=== PATIENT | male | born 1985 | race Caucasian/White ===

== ENCOUNTER 2020-04-06 08:26 | Outpatient (CLI) | payer BC, SELFPAY ==
--- NOTE | 2020-04-06 08:00 | US_ITS ---
WS: [id number] ULTRASOUND ABDOMEN LIMITED CLINICAL INFORMATION: RUQ pain COMPARISON: None. FINDINGS: Liver Size: Enlarged Craniocaudal length: 17.7 cm. Echogenicity: Fatty Surface nodularity: None. Mass (size and location): None. Bile ducts Intrahepatic ducts: Normal. Common bile duct diameter: 0.2 cm. Gallbladder Normal. Gallstones: None. Gallbladder sludge: None. Gallbladder wall thickening: None. Pericholecystic fluid: None. Sonographic Morillo sign: Absent. Pancreas Normal as visualized. Right kidney: Normal. Hydronephrosis: None. Size: 9.4 cm x 6.1 cm x 5.1 cm. Abdominal aorta and IVC Visualized portions are normal. Ascites: None. US/US abdomen limited [id number] IMPRESSION: 1. Mild hepatomegaly diffuse fatty infiltration. 2. No hydronephrosis in right kidney. 3. Normal gallbladder and common bile duct.
== END 2020-04-06 08:27 | disposition home or self-care (01) ==
LOC: RAD 08:35
PROVIDERS: PCP Family Medicine; Visit Provider Family Medicine
DX: R10.11 Right upper quadrant pain (principal); R16.0 Hepatomegaly, not elsewhere classified; K76.0 Fatty (change of) liver, not elsewhere classified
CPT/HCPCS: 76705

== ENCOUNTER → 2020-06-18 13:57 | Outpatient (BNVA) | payer BC, SELFPAY | PROVIDERS: PCP Family Medicine; Visit Provider Family Medicine | DX: R10.11 Right upper quadrant pain (principal) | CPT/HCPCS: 87205; 87493; 87506 ==

== ENCOUNTER → 2020-10-16 11:26 | Outpatient (BNVA) | payer BC, SELFPAY | PROVIDERS: PCP Family Medicine; Visit Provider Family Medicine | DX: Z13.6 Encounter for screening for cardiovascular disorders (principal); F41.1 Generalized anxiety disorder; K52.9 Noninfective gastroenteritis and colitis, unspecified; F17.290 Nicotine dependence, other tobacco product, uncomplicated; L30.9 Dermatitis, unspecified | CPT/HCPCS: 80053; 80061; 85025 ==

== ENCOUNTER → 2021-10-15 08:51 | Outpatient (BNVA) | payer BC, SELFPAY | PROVIDERS: PCP Family Medicine; Visit Provider Family Medicine | DX: I10 Essential (primary) hypertension (principal) | CPT/HCPCS: 80053; 80061; 82043; 85025 ==

== ENCOUNTER → 2022-10-17 11:24 | Outpatient (BNVA) | payer BC, SELFPAY | PROVIDERS: PCP Family Medicine; Visit Provider Family Medicine | DX: I10 Essential (primary) hypertension (principal) | CPT/HCPCS: 80053; 80061; 85025 ==

== ENCOUNTER → 2023-09-16 14:45 | Outpatient (BNVA) | payer BC, SELFPAY | PROVIDERS: PCP Family Medicine; Visit Provider Registered Nurse Neonatal Intensive Care | DX: J02.9 Acute pharyngitis, unspecified (principal); B96.89 Other specified bacterial agents as the cause of diseases classified elsewhere; H61.23 Impacted cerumen, bilateral | CPT/HCPCS: 87880 ==

== ENCOUNTER 2024-02-25 20:01 | Emergency (ER) | payer SELFPAY ==
[2024-02-25 20:18] VITALS: BP 149/98; PULSE 82; RESP 16; TEMP 36.6; O2SAT 97
--- NOTE | 2024-02-25 21:58 | USCV_ITS ---
Robin Ho Age: 38 Gender: M : 1985 Exam Date: 02/25/2024 22:59 Ordering Phys: Mark Hitchcock Technologist: Dylan Peñaloza [place] [facility] [place] Indication: foot numbness PROCEDURES: Venous duplex imaging was performed in only the left lower extremity. The following venous structures were evaluated: common femoral vein, profunda vein, proximal portion of the greater saphenous vein, superficial femoral vein, and the popliteal vein. In addition, the posterior tibial and peroneal trunk were evaluated. Serial compression, augmentation maneuvers, and spectral Doppler flow evaluation were performed. FINDINGS: Normal 2-D Doppler and augmentation and compressibility throughout the lower extremity venous structures. Additional imaging through the proximal calf veins also reveals no thrombus. Limited evaluation of the greater saphenous vein is patent with no thrombus. CONCLUSIONS No DVT left lower extremity. Dr. Maya Goodwin DO (Electronically Signed) Final Date: 26 February 2024 07:40 S
[2024-02-25] MEDS: orphenadrine 30 mg/mL Inj 2 mL 60 MG IM (22:12)
[2024-02-25] MEDS: dexamethasone 10 mg/mL INJ IM (22:12)
--- NOTE | 2024-02-25 22:12 | ED_ITS ---
HPI - Back Pain/Injury General: Chief Complaint: Back Pain/Injury Stated Complaint: Left leg pain Time Seen by Provider: 02/25/24 20:36 Source: patient Mode of arrival: ambulatory Limitations: no limitations History of Present Illness: Patient is a 38-year-old male who presents to the emergency department complaining of left leg pain and numbness for the past few weeks, worsening today. He notes sudden onset of atraumatic pain, stating that he is having pain and numbness shoot from his left hip down to the dorsal aspect of his foot. He is notes that he is having issues walking because of this. Notes a history of lumbar decompression surgery many years ago, has never had pain like this in the past. 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 He is also endorsing some calf tenderness at this time. No other symptoms reported at this time. MD elicited complaint: other (Left lower extremity pain) Pertinent past history: back surgery Onset (ago): week(s) Severity: moderate Similar Symptoms Previously: No Associated symptoms: Deny abdominal pain, chills, fever(s), nausea or vomiting Review of Systems General: Reports: 10 or more systems reviewed and unremarkable except in HPI and below Const: Denies: fever(s) or chills Card: Denies: chest pain Resp: Denies: dyspnea or productive cough GI: Denies: abdominal pain, nausea, vomiting or diarrhea : Denies: flank pain Musc: Reports: extremity pain; Denies: neck pain, back pain, extremity swelling, joint pain, joint swelling, joint redness, joint warmth, limited range of motion or muscle weakness Skin/Breast: Denies: rash Neuro: Reports: numbness in extremities; Denies: headache(s) or weakness in extremities PFSH ED PFSH: Medical History ANDRZEJ (generalized anxiety disorder) Surgical History History of back surgery Family History Other Diabetes Hypertension Social History Smoking and tobacco/nicotine status: current every day tobacco/nicotine user (vape) e-cigarettes E-Cigarette Details: vaporizer device and with nicotine Alcohol intake: current Alcohol intake frequency: holidays/special occasions only Alcohol type: beer Substance/Drug Use: former Physical Exam Const: COMMON NORMALS: no acute distress, patient oriented x3, no limitations, healthy appearing, alert and well nourished HENMT: COMMON NORMALS: normocephalic and atraumatic HEAD & SCALP: normocephalic and atraumatic Neck/C-Spine: COMMON NORMALS: full ROM, supple and no meningeal signs Resp: COMMON NORMALS: normal respiratory effort, No use of accessory muscles and clear to auscultation bilaterally AUSCULTATION: clear to auscultation bilaterally Cardio: COMMON NORMALS: regular rate and regular rhythm RATE: regular rate RHYTHM: regular rhythm Extremity: NARRATIVE EXTREMITY EXAM: There is no obvious unilateral edema to the left leg, however there is moderate tenderness to palpation of the left calf. He also has tenderness to palpation of the dorsal aspect of the left foot. He has palpable pulses that are 2+ to the dorsalis pedis and posterior tibial. No obvious skin color change. Antalgic gait, essentially no range of motion at the hip knee or ankle. Neuro: COMMON NORMALS: patient oriented x3, moves all extremities, no focal motor deficits and no sensory deficits noted SENSORIUM/ORIENTATION: Yes alert MENINGEAL SIGNS: Yes no meningeal signs Skin: COMMON NORMALS: no rashes or lesions noted GENERAL SKIN EXAM: no rashes or lesions noted Course Vital Signs: Vital signs: Vital Signs Temperature 97.9 F 02/25/24 20:18 Pulse Rate 89 02/25/24 22:25 Respiratory Rate 15 02/25/24 22:25 Blood Pressure 127/91 02/25/24 22:25 Pulse Oximetry 98 02/25/24 22:25 Oxygen Delivery Me thod Room Air 02/25/24 22:25 MDM - Back Pain/Injury Medical Decision Making Patient presented for acute onset of atraumatic left lower extremity pain he did report that he drives a truck for living, there was no trauma, and he did have some distal neurovascular symptoms to report. Because of this I obtained an ultrasound with a blood clot, of which was negative. He did not specifically report any back pain, I do not feel that his pain is originating from this at the time. He did note some improvement of his pain after receiving shot of Toradol, muscle laxer, and steroid. Because of this I will send steroid muscle laxer to pharmacy and he is to follow-up with primary care for further evaluation. XR interpretation done by ED provider, pending radiology final review Discharge Plan Discharge Patient Disposition: Home Clinical Impression: Acute pain of left lower extremity Condition: Stable Prescriptions: New cyclobenzaprine 10 mg tablet 10 mg PO TID Qty: 15 0RF prednisone 20 mg tablet 60 mg PO ONCE 5 Days Qty: 15 0RF No Action cyclobenzaprine 5 mg tablet 5 mg PO TID PRN (Reason: muscle spasm) Qty: 15 0RF betamethasone dipropionate 0.05 % cream 1 applic topical BID Qty: 45 1RF triamcinolone acetonide 0.1 % ointment 1 applic topical BID Qty: 80 1RF Rx Instructions: Apply to hands no more than 2 wks/mo alternating with Betamethasone buspirone 10 mg tablet 10 mg PO TID PRN (Reason: anxiety) Qty: 90 1RF citalopram 40 mg tablet See Rx Instructions .ROUTE .COMPLEX Qty: 90 0RF Dose Instruction: Take 1 tablet by mouth once daily Rx Instructions: Take 1 tablet by mouth once daily amlodipine 5 mg tablet See Rx Instructions .ROUTE .COMPLEX Qty: 90 1RF Dose Instruction: Take 1 tablet by mouth once daily Rx Instructions: Take 1 tablet by mouth once daily bupropion HCl 300 mg tablet extended release 24 hr 300 mg PO QAM Qty: 30 0RF Discharge Orders: Discharge ED (Routine); Ordered 02/25/24 Ordered By: Mark Hitchcock Referrals: Pili Delaney DO [Primary Care Provider] - Discharge Diet: Usual diet Discharge Activity: Increase activity as tolerated Patient Instructions: Leg Pain (ED), Pain Management Activity Restrictions/Additional Instructions: Take steroids and muscle relaxer. Follow-up with primary care. Return with any new or worsening. Coding Level of Care Code ED Business Solutions Director for Gloria Monsivais
[2024-02-25] MEDS: ketorolac 60 mg/2 mL INJ IM (22:15)
[2024-02-25 22:25] VITALS: BP 127/91; PULSE 89; RESP 15; O2SAT 98
[2024-02-25 23:37] VITALS: BP 157/101; PULSE 90; RESP 22; O2SAT 96
== END 2024-02-25 23:39 | disposition home or self-care (01) ==
PROVIDERS: Emergency Provider Physician Assistant; PCP Family Medicine
DX: M79.605 Pain in left leg (principal); F17.290 Nicotine dependence, other tobacco product, uncomplicated
CPT/HCPCS: 93971; 96372; 99284; J1100; J1885; J2360

== ENCOUNTER 2024-06-28 21:07 | Emergency (ER) | payer SELFPAY ==
[2024-06-28 21:08] VITALS: BP 177/104; PULSE 86; RESP 18; TEMP 36.9; O2SAT 99; BMI 26.4
--- NOTE | 2024-06-28 21:23 | XRR_ITS ---
PROCEDURE INFORMATION: Exam: XR Chest Exam date and time: 06/28/2024 9:47 PM Age: 38 years old Clinical indication: Right-sided; Patient HX: RT lateral lower rib pain-worse with inspiration post fall x 1 week ago TECHNIQUE: Imaging protocol: Radiologic exam of the chest. Views: 1 view. COMPARISON: No relevant prior studies available. FINDINGS: Lungs: No focal consolidation. Pleural spaces: No sizable pleural effusion. No pneumothorax. Heart/Mediastinum: Unremarkable cardiomediastinal silhouette. Bones/joints: The osseous structures are unremarkable. There is no evidence of acute fracture. XR/XR chest 1V portable [id number] IMPRESSION: No acute findings.
--- NOTE | 2024-06-28 21:33 | W.ED.PSYCHS ---
Documented by User: ANGIE Bonilla 06/28/24 22:38 HPI - Psych General: Chief Complaint: Psychiatric Symptoms Stated Complaint: DEPRESSION Time Seen by Provider: 06/28/24 21:10 Source: patient Mode of arrival: ambulatory Limitations: no limitations History of Present Illness: Patient is a 38-year-old male presenting to the emergency department from [facility] due to depression. States he has a history of chronic depression has been taking citalopram for years but his primary care recently left. He thinks that his citalopram has not been working for him, though also he was recently incarcerated during the same timeframe. Also notes a in the family. He is reporting right rib pain incidentally, as he was arrested last Monday and unable to tell me what happened. He is denying any suicidal ideation, homicidal ideation, hallucinations of any kind, or other symptoms. He arrives requesting that he be given something else for his anxiety. Upon reviewing his medications he does have a history of taking bupropion and BuSpar. MD complaint: feels depressed Onset (ago): year(s) History of same: Yes Exacerbating factors: other (Recently incarcerated) Associated psychiatric symptoms: none Associated symptoms: Reports depression; Deny auditory hallucinations, visual hallucinations, homicidal ideation or suicidal ideation Related Data Previous Rx's Medication Instructions Recorded betamethasone dipropionate 0.05 % 1 applic topical BID #45 grams 10/11/22 topical cream triamcinolone acetonide 0.1 % 1 applic topical BID #80 grams 10/11/22 topical ointment buspirone 10 mg tablet 10 mg PO TID PRN anxiety #90 tabs 10/27/23 amlodipine 5 mg tablet See Rx Instructions .Route 12/22/23 .COMPLEX #90 tabs citalopram 40 mg tablet See Rx Instructions .Route 12/22/23 .COMPLEX #90 tabs bupropion HCl 300 mg 24 hr tablet, 300 mg PO QAM #30 tabs 02/01/24 extended release cyclobenzaprine 5 mg tablet 5 mg PO TID PRN muscle spasm #15 02/05/24 tabs cyclobenzaprine 10 mg tablet 10 mg PO TID #15 tabs 02/25/24 Allergies Allergy/AdvReac Type Severity Reaction Status Date / Time No Known Allergies Allergy Verified 02/05/24 18:30 Review of Systems General: Reports: 10 or more systems reviewed and unremarkable except in HPI and below Const: Denies: fever(s), chills or fatigue Eyes: Denies: change in vision ENMT: Denies: throat pain, ear or mastoid pain or nasal discharge Card: Denies: chest pain, palpitations, swelling of feet/ankles or lightheadedness Resp: Denies: dyspnea, productive cough or wheezing GI: Denies: abdominal pain, nausea, vomiting, diarrhea or constipation : Denies: flank pain, difficulty urinating, dysuria or urinary frequency Musc: Denies: neck pain, back pain or joint pain Skin/Breast: Denies: rash Neuro: Denies: headache(s), numbness in extremities or weakness in extremities Psych: Reports: anxiety and depression; Denies: visual hallucinations, auditory hallucinations, tactile hallucinations, suicidal ideation or homicidal ideation PFS ED PFSH: Medical History ANDRZEJ (generalized anxiety disorder) Surgical History History of back surgery Family History Other Diabetes Hypertension Social History Smoking and tobacco/nicotine status: current every day tobacco/nicotine user (vape) e-cigarettes E-Cigarette Details: vaporizer device and with nicotine Alcohol intake: current Alcohol intake frequency: holidays/special occasions only Alcohol type: beer Substance/Drug Use: former Physical Exam Const: COMMON NORMALS: no acute distress and no limitations GENERAL APPEARANCE: cooperative and well developed ORIENTATION/CONSCIOUSNESS: Yes awake OTHER: Tearful on examination HENMT: COMMON NORMALS: normocephalic, atraumatic and hearing grossly normal bilaterally HEAD & SCALP: normocephalic and atraumatic Eye: COMMON NORMALS: Equal, round and reactive pupils present, EOMs intact bilaterally and conjunctivae normal CONJUNCTIVA: Yes conjunctivae normal PUPIL: Yes Equal, round and reactive pupils present Neck/C-Spine: COMMON NORMALS: full ROM, supple and no JVD Chest: OTHER: Reproducible tenderness to right anterolateral chest Resp: COMMON NORMALS: normal respiratory effort, No retractions, No use of accessory muscles and clear to auscultation bilaterally AUSCULTATION: clear to auscultation bilaterally Cardio: COMMON NORMALS: no JVD, regular rate, regular rhythm, No clicks present (Cardio), No murmurs present (Cardio) and No rub (Cardio) RATE: regular rate RHYTHM: regular rhythm GI: COMMON NORMALS: Normal to inspection, nondistended, normoactive bowel sounds present, Soft to palpation and non-tender AUSCULTATION: Yes normoactive bowel sounds PALPATION: Yes Soft to palpation RECTAL EXAM: Yes deferred Extremity: COMMON NORMALS: normal to inspection, full ROM and capillary refill normal Psych: COMMON NORMALS: mental status grossly normal, Normal thought process present and speech normal APPEARANCE: Yes disheveled ACTIVITY/MOTOR BEHAVIOR: Yes Avoids eye contact (attititude/behavior) SPEECH: Yes normal speech MOOD & AFFECT: Yes tearful THOUGHT PROCESS: Normal thought process present THOUGHT CONTENT: No Suicidality present, No Homicidality present and No Hallucination(s) present Skin: COMMON NORMALS: no rashes or lesions noted GENERAL SKIN EXAM: no rashes or lesions noted Course Vital Signs: Vital signs: Vital Signs Temperature 98.4 F 06/28/24 21:08 Pulse Rate 66 06/28/24 22:44 Respiratory Rate 18 06/28/24 21:08 Blood Pressure 141/96 06/28/24 22:44 Pulse Oximetry 96 06/28/24 22:44 Oxygen Delivery Me thod Room Air 06/28/24 22:30 [facility] - Psych Medical Decision Making Patient presented from [place] [facility] for anxiety and depression, he has a history of multiple years of this. He did not report any suicidal or homicidal ideations. States that he was recently put in [place] [facility] and family mother , this is likely explaining an acute exacerbation of his anxiety/depression. Also states for a while now his citalopram has slowly started to not be as effective. He notes improvement after receiving 1 Ativan here as he was tearful on exam and acutely anxious. He was reporting some right chest wall pain from an incident Monday prior to him getting arrested, this was negative for any fracture. He is informed to follow-up with new primary care and establish with [facility] again so that he can discuss new pain medications. Did instruct him that if he has any SI/HI to come back. Lab Data Radiology Impressions Chest X-Ray 06/28/24 21:23 IMPRESSION: No acute findings. No radiology studies performed this visit Discharge Plan Discharge Patient Disposition: Home Clinical Impression: ANDRZEJ (generalized anxiety disorder) Condition: Stable Prescriptions: No Action cyclobenzaprine 5 mg tablet 5 mg PO TID PRN (Reason: muscle spasm) Qty: 15 0RF betamethasone dipropionate 0.05 % cream 1 applic topical BID Qty: 45 1RF triamcinolone acetonide 0.1 % ointment 1 applic topical BID Qty: 80 1RF Rx Instructions: Apply to hands no more than 2 wks/mo alternating with Betamethasone buspirone 10 mg tablet 10 mg PO TID PRN (Reason: anxiety) Qty: 90 1RF citalopram 40 mg tablet See Rx Instructions .ROUTE .COMPLEX Qty: 90 0RF Dose Instruction: Take 1 tablet by mouth once daily Rx Instructions: Take 1 tablet by mouth once daily amlodipine 5 mg tablet See Rx Instructions .ROUTE .COMPLEX Qty: 90 1RF Dose Instruction: Take 1 tablet by mouth once daily Rx Instructions: Take 1 tablet by mouth once daily bupropion HCl 300 mg tablet extended release 24 hr 300 mg PO QAM Qty: 30 0RF cyclobenzaprine 10 mg tablet 10 mg PO TID Qty: 15 0RF Discharge Orders: Discharge ED (Routine); Ordered 06/28/24 Ordered By: Mark Hitchcock Referrals: Pili Delaney DO [Primary Care Provider] - Activity Restrictions/Additional Instructions: Call family medicine to arrange for primary care follow-up, and follow-up with [facility]. Continue taking your citalopram and return with any thoughts of suicidal or homicidal ideations, hallucinations, or other concerning symptoms you have. Coding Level of Care Code ED Architect for Ch[facility] [employer] Documented by User: Fidencio Villafana DO 06/29/24 15:47 HPI - Psych General: Chief Complaint: Psychiatric Symptoms Stated Complaint: DEPRESSION Time Seen by Provider: 06/28/24 21:10 Related Data Previous Rx's Medication Instructions Recorded betamethasone dipropionate 0.05 % 1 applic topical BID #45 grams 10/11/22 topical cream triamcinolone acetonide 0.1 % 1 applic topical BID #80 grams 10/11/22 topical ointment buspirone 10 mg tablet 10 mg PO TID PRN anxiety #90 tabs 10/27/23 amlodipine 5 mg tablet See Rx Instructions .Route 12/22/23 .COMPLEX #90 tabs citalopram 40 mg tablet See Rx Instructions .Route 12/22/23 .COMPLEX #90 tabs bupropion HCl 300 mg 24 hr tablet, 300 mg PO QAM #30 tabs 02/01/24 extended release cyclobenzaprine 5 mg tablet 5 mg PO TID PRN muscle spasm #15 02/05/24 tabs cyclobenzaprine 10 mg tablet 10 mg PO TID #15 tabs 02/25/24 Allergies Allergy/AdvReac Type Severity Reaction Status Date / Time No Known Allergies Allergy Verified 02/05/24 18:30 [facility] ED PFSH: Medical History ANDRZEJ (generalized anxiety disorder) Surgical History History of back surgery Family History Other Diabetes Hypertension Social History Smoking and tobacco/nicotine status: current every day tobacco/nicotine user (vape) e-cigarettes E-Cigarette Details: vaporizer device and with nicotine Alcohol intake: current Alcohol intake frequency: holidays/special occasions only Alcohol type: beer Substance/Drug Use: former Course Vital Signs: Vital signs: Vital Signs Temperature 98.4 F 06/28/24 21:08 Pulse Rate 66 06/28/24 22:44 Respiratory Rate 18 06/28/24 21:08 Blood Pressure 141/96 06/28/24 22:44 Pulse Oximetry 96 06/28/24 22:44 Oxygen Delivery Me thod Room Air 06/28/24 22:30 [facility] - Psych Medical Decision Making Patient presented from [place] [facility] for anxiety and depression, he has a history of multiple years of this. He did not report any suicidal or homicidal ideations. States that he was recently put in [place] [facility] and family mother , this is likely explaining an acute exacerbation of his anxiety/depression. Also states for a while now his citalopram has slowly started to not be as effective. He notes improvement after receiving 1 Ativan here as he was tearful on exam and acutely anxious. He was reporting some right chest wall pain from an incident Monday prior to him getting arrested, this was negative for any fracture. He is informed to follow-up with new primary care and establish with [facility] again so that he can discuss new pain medications. Did instruct him that if he has any SI/HI to come back. This patient was originally seen by Mr. Naldo PA-C. I agree with his history, evaluation, and treatment. Lab Data Radiology Impressions Chest X-Ray 06/28/24 21:23 IMPRESSION: No acute findings. Discharge Plan Discharge Patient Disposition: Home Clinical Impression: ANDRZEJ (generalized anxiety disorder) Condition: Stable Prescriptions: No Action cyclobenzaprine 5 mg tablet 5 mg PO TID PRN (Reason: muscle spasm) Qty: 15 0RF betamethasone dipropionate 0.05 % cream 1 applic topical BID Qty: 45 1RF triamcinolone acetonide 0.1 % ointment 1 applic topical BID Qty: 80 1RF Rx Instructions: Apply to hands no more than 2 wks/mo alternating with Betamethasone buspirone 10 mg tablet 10 mg PO TID PRN (Reason: anxiety) Qty: 90 1RF citalopram 40 mg tablet See Rx Instructions .ROUTE .COMPLEX Qty: 90 0RF Dose Instruction: Take 1 tablet by mouth once daily Rx Instructions: Take 1 tablet by mouth once daily amlodipine 5 mg tablet See Rx Instructions .ROUTE .COMPLEX Qty: 90 1RF Dose Instruction: Take 1 tablet by mouth once daily Rx Instructions: Take 1 tablet by mouth once daily bupropion HCl 300 mg tablet extended release 24 hr 300 mg PO QAM Qty: 30 0RF cyclobenzaprine 10 mg tablet 10 mg PO TID Qty: 15 0RF Discharge Orders: Discharge ED (Routine); Ordered 06/28/24 Ordered By: Mark Hitchcock Referrals: Pili Delaney DO [Primary Care Provider] - Activity Restrictions/Additional Instructions: Call family medicine to arrange for primary care follow-up, and follow-up with [facility]. Continue taking your citalopram and return with any thoughts of suicidal or homicidal ideations, hallucinations, or other concerning symptoms you have. Coding Level of Care Code ED Architect for Gloria Monsivais
[2024-06-28] MEDS: LORazepam 1 mg Tablet PO (21:34)
[2024-06-28 22:30] VITALS: BP 141/96; PULSE 66; O2SAT 96
[2024-06-28 22:44] VITALS: BP 141/96; PULSE 66; O2SAT 96
== END 2024-06-28 23:00 | disposition home or self-care (01) ==
PROVIDERS: Emergency Provider Physician Assistant; PCP Family Medicine
DX: F41.1 Generalized anxiety disorder (principal); F17.290 Nicotine dependence, other tobacco product, uncomplicated
CPT/HCPCS: 71045; 99283